=== PATIENT | female | born 1970 ===

== ENCOUNTER 2019-01-07 13:03 | Emergency (ER) | payer MEDICAID ==
[2019-01-07 13:11] VITALS: BP 145/96; PULSE 79; RESP 18; TEMP 98.3; O2SAT 98
[2019-01-07] MEDS ORDERED: Naproxen 500 MG TAB PO ONE ×2 (13:20→14:07)
[2019-01-07] MEDS ORDERED: Lidocaine 5% Patch TD STA (13:48)
[2019-01-07] MEDS ORDERED: Lidocaine 5% Patch TD ONE (14:07)
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
--- NOTE | 2019-01-07 14:46 | RAD ---
Date of service: 01/07/2019 PROCEDURE: Radiographs of the Right Shoulder HISTORY: trauma COMPARISON: No prior. TECHNIQUE: 3 views obtained. FINDINGS: BONES: Normal. No fracture. 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 SOFT TISSUES: There are multiple tiny calcifications seen within the soft tissues adjacent to the greater tuberosity consistent with calcific tendinitis. OTHER FINDINGS: None. IMPRESSION: No acute displaced fracture nor dislocation. Minor degenerative osteoarthritis. There are multiple tiny calcifications seen within the soft tissues adjacent to the greater tuberosity consistent with calcific tendinitis.
== END 2019-01-07 14:23 | disposition home or self-care (01) ==
LOC: H.ER 13:03
DX: S49.91XA Unspecified injury of right shoulder and upper arm, initial encounter (principal); Y04.2XXA Assault by strike against or bumped into by another person, initial encounter